=== PATIENT | male | born 1990 | race Two or more races ===

== ENCOUNTER 2024-03-26 12:53 | Emergency (ER) | payer OTHER ==
[~2024-03-26] VITALS: Ht 170.2 cm; Wt 86.2 kg
[2024-03-26 13:46] VITALS: BP 139/93; O2SAT 96
[2024-03-26 15:12] LABS: HEMOGLOBIN 16.2 g/dL (13-16.00); MEAN CELL VOLUME 89.4 fL (80.0-100.00); MEAN CORPUSCULAR HEMOGLOBIN 30.9 pg (27.00-32.0); MEAN CORPUSCULAR HGB CONC 34.5 g/dl (32.0-36.0); PLATELET COUNT 237 K/uL (150-450); RED BLOOD COUNT 5.26 M/uL (4.00-6.00); RED CELL DISTRIBUTION WIDTH 14.4 % (11.5-14.5)
[2024-03-26] MEDS ORDERED: XYZAL5 MG PO (17:45)
[2024-03-26] MEDS ORDERED: IPRATROPIU0.2 MG/1 M IH (17:45)
[2024-03-26] MEDS ORDERED: ALBUTEROL2.5 MG/3 M IH (17:45)
[2024-03-26] MEDS ORDERED: SINGULAIR10 MG PO (17:45)
== END 2024-03-26 17:59 | disposition home or self-care (01) ==
LOC: ER 12:55
PROVIDERS: General Practice
DX: J45.909 Unspecified asthma, uncomplicated (principal); R50.9 Fever, unspecified; Z20.822 Contact with and (suspected) exposure to COVID-19